=== PATIENT | male | born 1970 | race Caucasian/White ===

== ENCOUNTER → 2019-06-03 08:17 | Outpatient (CLI) | payer BC | END | disposition home or self-care (01) | LOC: D.US 08:17 | PROVIDERS: ATTEND Family Medicine | DX: R10.10 Upper abdominal pain, unspecified (principal) ==

== ENCOUNTER → 2019-06-17 08:47 | Outpatient (CLI) | payer BC | END | disposition home or self-care (01) | LOC: D.NM 06-10 09:30 | PROVIDERS: ATTEND Family Medicine | DX: R10.11 Right upper quadrant pain (principal) ==

== ENCOUNTER 2019-07-06 08:00 | Outpatient (CLI) | payer BC ==
[2019-07-06 10:45] LABS: HEMATOCRIT 50.6 % (42.0-54.0); HEMOGLOBIN 18.2 g/dL (13.5-17.5); MCH 31.7 pg (26.0-34.0); MCV 88.2 fL (80.0-100.0); MEAN PLATELET VOLUME 11.1 fL (7.4-10.4); PLATELET COUNT 182 10x3/uL (130-400); RBC 5.74 10x6/uL (4.20-6.10); RDW 12.1 % (11.5-14.5); WBC 6.3 10x3/uL (4.8-10.8)
[2019-07-06] MEDS ORDERED: LISINOPRIL5 MG PO (10:59)
[2019-07-06 11:37] LABS: CALCIUM 9.2 mg/dL (8.5-10.1); CREATININE - SERUM 1.3 mg/dL (0.6-1.3)
== END 2019-07-06 08:01 | disposition home or self-care (01) ==
LOC: D.OPS 08:00 → EDSTATUS 07-09 07:30 → D.PAN 07-09 07:30
PROVIDERS: Anesthesiology; ATTEND Surgery
DX: K82.8 Other specified diseases of gallbladder (principal)